=== PATIENT | male | born 1960 | race African-American/Black ===

== ENCOUNTER 2023-03-12 12:41 | Outpatient (AMB) | payer OTHER, SELFPAY ==
--- NOTE | 2023-03-12 12:53 | A.OFFVIS_ITS ---
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 03/12/23-- He has noted changes in urination and states having nocturia episodes 5 times per night which has worsened over the last five years. Occasionally needs to put pressure to start the urine stream. The patient also has concerns regarding erections. The patient is on antidiabetic medications. He has been exercising and has lost weight and has gone from 300 pounds to 215 pounds and no longer requires insulin. He is taking memantine BID for memory loss with benefits. States having UTI episode 30 years ago. He is sexually active. His father is . Denies family history of prostate cancer. Denies urinary leakage. Denies taking tamsulosin in the past. Denies history of nicotine use. Evaluation today: blood: negative, leukocytes: negative, glucose: positive. PVR: 0 mL. AUA symptom score: 19 IIEF-5 score: 12 Prostate exam: Moderately enlarged, no distinct nodule palpated. I have discussed trial of Cialis 5 mg for ED and alfuzosin 10 mg daily for BPH symptoms. I want to further evaluate with renal baldder US, PSA blood work and testosterone free/total. It was also discussed that with age the prostate gets larger, it can affect the flow of the urine and over time the bladder muscle may apply more pressure to start the urine stream and in doing so the bladder muscle can start to thicken and change which can cause bladder spasm with symptoms of urgency and frequency. Plan: Tamsulosin 0.4 mg once a day. Cialis 5 mg QD was ordered. Alfuzosin 10 mg to be taken in the morning with the breakfast. PSA and testosterone free/total blood work prior was ordered. Renal bladder US prior was ordered. Follow-up after 3 months. [facility] Medical History Abdominal pain Abnormal breast biopsy Androgen deficiency Decreased range of motion of neck Foot pain Hand pain Headache Heart murmur, systolic History of seizures as a child HTN (hypertension) Hypercholesteremia Increased CPK level Migraine Myofascial pain Obesity (BMI 30-39.9) Obstructive sleep apnea Polyneuropathy Questionnaire AUA Symptom Score AUA Incomplete emptying - It does not feel like I empty my bladder all the way.: 2 - Less than half the time Frequency - I have to go again less than two hours after I finish urinating.: 3 - About half the time Intermittency - I stop and start again several times when I urinate.: 3 - About half the time Urgency - It is hard to wait when I have to urinate.: 4 - More than half the time Weak stream - I have a weak urinary stream.: 3 - About half the time Straining - I have to push or strain to begin urination.: 1 - Less than 1 time in 5 Nocturia - I get up to urinate after I go to bed until the time I get up in the morning.: 3 times AUA Symptom Score: 19 Quality of life due to urinary symptoms: If you were to spend the rest of your life with your urinary condition the way it is now, how would you feel about that?: Mixed: about equally satisfied and dissatisfied Source: Sarthak WHITE, Sue GREER Jr, O'Lee Ann MP, et al, and the Measurement Committee of the [place] [employer]. The [place] [employer] symptom index for benign prostatic hyperplasia. J Urol. 1992; 148: 4030-2930. Copyright 1992 [place] [employer] Review of Systems Const All systems reviewed & are unremarkable except as noted in HPI and below Reports no additional complaints Eyes Reports no additional complaints ENT Reports no additional complaints Card Denies dyspnea Resp Denies cough and Denies dyspnea GI Reports no additional complaints Musc Reports no additional complaints Skin/Breast Denies rash and Denies unusual bruising Neuro Reports no additional complaints Psych Reports no additional complaints Endo Reports no additional complaints Andrew/Lymph Reports no additional complaints Aller/Immun Reports no additional complaints Physical Exam Const General: healthy appearing, no acute distress and well developed Orientation/consciousness: patient oriented x3 HEENT Head: Yes normocephalic and Yes atraumatic Eyes Conjunctivae: conjunctivae normal Neck Neck: Yes normal visual inspection Chest Chest palpation & inspection: normal inspection of the chest Resp Effort & Inspection: normal respiratory effort Cardio Rate: regular rate GI Inspection: Yes normal to inspection Palpation (GI): Soft to palpation Other: Prostate Exam: Moderately enlarged, no distinct nodule palpated. Skin General skin exam: no rashes or lesions noted Neuro General: patient oriented x3 Extrem General: No pedal edema Psych Appearance: grossly normal Affect: normal affect Office Procedures Post Void Residual Post Residual Void Post Void Residual (PVR): 0 [id number] Void Residual by ultrasound Results AMB Urinalysis, Automated UA Leukoctes Ella/uL Last Edit by Elvi Branch CMA on 03/12/23 13:07 UA Nitrite Last Edit by Elvi Branch CMA on 03/12/23 13:07 UA Urobilinogen 0.2 mg/dL Last Edit by Elvi Branch CMA on 03/12/23 13:07 UA Protein 15 mg/dL Last Edit by Elvi Branch CMA on 03/12/23 13:07 UA pH 6.0 Last Edit by Elvi Branch CMA on 03/12/23 13:07 UA Blood Keith/uL Last Edit by Elvi Branch CMA on 03/12/23 13:07 UA Specific [place] 1.020 Last Edit by Elvi Branch CMA on 03/12/23 13:07 UA Ketone Last Edit by Elvi Branch CMA on 03/12/23 13:07 UA Bilirubin mg/dL Last Edit by Elvi Branch CMA on 03/12/23 13:07 UA Glucose 1000 mg/dL Last Edit by Elvi Branch CMA on 03/12/23 13:07 Results Reviewed Results Reviewed: Laboratory Last Values Urine pH (Auto) 6.0 03/12/23 13:00 Specific [place] (Auto) 1.020 03/12/23 13:00 Urine Protein (Auto) 15 mg/dL 03/12/23 13:00 Glucose (UA)(Auto) 1000 mg/dL 03/12/23 13:00 Urine Urobilinogen (Auto) 0.2 mg/dL 03/12/23 13:00 Assessment & Plan Assessment & Plan (1) BPH (benign prostatic hyperplasia): Code(s): N40.0 - Benign prostatic hyperplasia without lower urinary tract symptoms (2) Nocturia: Code(s): R35.1 - Nocturia (3) Erectile dysfunction: Code(s): N52.9 - Male erectile dysfunction, unspecified (4) Screening PSA (prostate specific antigen): Code(s): Z12.5 - Encounter for screening for malignant neoplasm of prostate Plan Tamsulosin 0.4 mg once a day. Cialis 5 mg QD was ordered. Alfuzosin 10 mg to be taken in the morning with the breakfast. PSA and testosterone free/total blood work prior was ordered. Renal bladder US prior was ordered. Follow-up after 3 months. Orders: Orders PSA, Ultra Sensitive 03/12/23 Z12.5 - Encounter for screening for malignant neoplasm of prostate Testosterone, Free/Total 03/12/23 N52.9 - Male erectile dysfunction, unspecified US retroperitoneal comp 03/12/23 R35.1 - Nocturia, N40.0 - Benign prostatic hyperplasia without lower urinary tract symptoms AMB Urinalysis Automated 03/12/23 N40.0 - Benign prostatic hyperplasia without lower urinary tract symptoms AMB Post Void Residual by ultrasound 03/12/23 N40.0 - Benign prostatic hyperplasia without lower urinary tract symptoms Medications: New alfuzosin ER administer after the same meal each day /take with breakfast daily 10 mg PO DAILY 90 tabs 1RF tadalafil (Cialis) [id number] [facility] [id number] Member [id number] 5 mg PO DAILY 30 tabs 0RF Quality Reporting (2019) Benign Prostatic Hyperplasia ([facility] 771) AUA symptom score: 19 Quality of life due to urinary symptoms: If you were to spend the rest of your life with your urinary condition the way it is now, how would you feel about that?: Mixed: about equally satisfied and dissatisfied Coding Level of Care Code New Pt Level 4 (58725) Diagnoses BPH (benign prostatic hyperplasia) N40.0 Nocturia R35.1 Erectile dysfunction N52.9 Screening PSA (prostate specific antigen) Z12.5 CPT Codes Post Residual Void - PVR CPT Code: 97165-[id number] Void Residual by ultrasound ([id number])
== END 2023-03-12 14:02 | disposition home or self-care (01) ==
LOC: HO.HUSH 12:41
PROVIDERS: PCP Physician Assistant Medical; Visit Provider Urology
DX: N40.0 Benign prostatic hyperplasia without lower urinary tract symptoms (principal); R35.1 Nocturia; N52.9 Male erectile dysfunction, unspecified; Z12.5 Encounter for screening for malignant neoplasm of prostate
CPT/HCPCS: 99204

== ENCOUNTER → 2023-03-12 12:41 | Outpatient (BNVA) | payer OTHER, SELFPAY | PROVIDERS: PCP Physician Assistant Medical; Visit Provider Urology | DX: N40.1 Benign prostatic hyperplasia with lower urinary tract symptoms (principal); R35.1 Nocturia; N52.9 Male erectile dysfunction, unspecified | CPT/HCPCS: 51798; 99202; 99212 ==